=== PATIENT | female | born 1985 | race Caucasian/White ===

== ENCOUNTER 2020-11-23 21:31 | Inpatient (IN) ==
[~2020-11-23 21:31] MED LIST: *HR* Dextrose 50 % in Water (Syg) 50 ML SYRINGE IVP ONE; *HR* Dextrose 50 % in Water (Syg) 50 ML SYRINGE IVP PRN; 0.9 % Sodium Chloride 250 ML IVC ONE; 0.9 % Sodium Chloride 500 ML ONE; CeFAZolin 2,000 MG/120 ML BAG IVPB ONE; D10% in Water 500 ML ONE; D5% in Lactated Ringers 1,000 ML IVC SCH; Famotidine 20 MG/2 ML VIAL IVP ONE; Metoclopramide 10 MG/2 ML VIAL IVP ONE; NIFEdipine Immed Rel 10 MG CAPSULE PO STA; NIFEdipine XL (24 HR) 30 MG TAB.ER.24 PO SCH
[2020-11-23] MEDS ORDERED: 0.9 % Sodium Chloride 500 ML ONE (22:27)
[2020-11-23] MEDS ORDERED: NIFEdipine XL (24 HR) 30 MG TAB.ER.24 PO SCH (22:30)
[2020-11-23 22:43] LABS: Basophils % 0.3 %; Eosinophils # 0.2 K/mcL (0.0-0.6); Eosinophils % 2.1 %; Hematocrit 35.3 % (35.3-44.9); Hemoglobin 11.5 g/dL (11.5-15.4); Immature Granulocytes % 0.4 % (0-4); Lymphocytes # 1.7 K/mcL (0.6-4.6); Lymphocytes % 23.7 %; Mean Corpuscular HGB Conc 32.6 g/dL (31.6-35.5); Mean Corpuscular Hemoglobin 28.2 pg (28.0-33.3); Mean Corpuscular Volume 86.5 fL (83.0-100.0); Monocytes # 0.8 K/mcL (0.0-1.3); Monocytes % 10.3 %; Neutrophils # 4.6 K/mcL (1.6-8.9); Platelet Count 271 K/mcL (140-400); Red Blood Count 4.08 M/mcL (3.82-4.97); Red Cell Distribution Width 13.2 % (11.5-14.5); Segmented Neutrophils % 63.2 %; White Blood Count 7.3 K/mcL (4.3-11.1)
[2020-11-23 23:02] LABS: Alanine Aminotransferase 22 Units/L (7-52); Aspartate Amino Transferase 38 Units/L (13-39); BUN/Creatinine Ratio 16 (6-26); Blood Urea Nitrogen 13 mg/dL (6-20); Lactate Dehydrogenase 202 Units/L (140-271); Uric Acid 5.1 mg/dL (2.3-7.6); eGFR For African Americans > 60 (> 60); eGFR For Non-African Americans > 60 (> 60)
[2020-11-24] MEDS ORDERED: Ondansetron 4 MG/2 ML VIAL ONE ×3 (00:43→07:12)
[2020-11-24 01:18] LABS: Bilirubin,Urine Negative (Negative); Blood,Urine Trace-intact (Negative); Clarity,Urine Clear (Clear); Color,Urine Yellow (Yellow); Glucose,Urine (UA) Normal (Normal); Ketones,Urine Trace mg/dL (Negative); Leukocyte Esterase,Urine Negative (Negative); Nitrite,Urine Negative (Negative); PH,Urine 5.5 pH Units (5.0-8.0); Protein,Urine 100 mg/dL (Neg-Trace); Specific Gravity,Urine 1.015 (1.010-1.025); Urobilinogen,Urine Normal (Normal)
[2020-11-24 01:23] LABS: Amphetamine Screen,Urine Negative ng/mL (Cutoff=1000); Barbiturate Screen,Urine Negative ng/mL (Cutoff=200); Benzodiazepines Screen,Urine Negative ng/mL (Cutoff=200); Cannabinoid Screen,Urine Negative ng/mL (Cutoff = 50); Cocaine Screen,Urine Negative ng/mL (Cutoff= 300); Creatinine,Urine 146 mg/dL; Opiate Screen,Urine Negative ng/mL (Cutoff=300); Phencyclidine Screen,Urine Negative ng/mL (Cutoff=25); Protein/Creatinine Ratio,Urine 0.94 mg/mg (0.00-0.20)
[2020-11-24 01:30] LABS: Bacteria,Urine Few per hpf (None-Few); RBC,Urine 0-3 per hpf (0-3); Squamous Epithelial Cell,Urine Many per hpf (None-Few); WBC,Urine 0-3 per hpf (0-3)
[2020-11-24 01:57] LABS: Influenza A PCR Negative (Negative); Influenza B PCR Negative (Negative); Resp. Syncytial Virus PCR Negative (Negative)
[2020-11-24 01:58] LABS: SARS-CoV-2 by PCR (In House) Negative (Negative)
[2020-11-24] MEDS ORDERED: Ondansetron 4 MG/2 ML VIAL IVP ONE ×2 (02:02→03:28)
[2020-11-24] MEDS ORDERED: 0.9 % Sodium Chloride 1,000 ML ONE (03:13)
[2020-11-24] MEDS ORDERED: 0.9 % Sodium Chloride 500 ML ONE (03:13)
[2020-11-24] MEDS ORDERED: *HR* FentaNYL (PF) 100 MCG/2 ML VIAL ONE (07:12)
[2020-11-24] MEDS ORDERED: *HR* Morphine Sulfate/PF 10 MG/10 ML AMPUL ONE (07:12)
[2020-11-24] MEDS ORDERED: EPHEDrine 50 MG/ML VIAL ONE (07:12)
[2020-11-24] MEDS ORDERED: *HR* Phenylephrine 10 MG/ML VIAL ONE (07:12)
[2020-11-24] MEDS ORDERED: *HR* OxyCODONE Immed Rel 5 MG TABLET PO PRN (07:16)
[2020-11-24] MEDS ORDERED: Ondansetron 4 MG/2 ML VIAL IVP PRN ×2 (07:16→11:24)
[2020-11-24] MEDS ORDERED: *HR* HYDROmorphone PF 0.5 MG/0.5 ML SYRINGE IVP PRN (07:16)
[2020-11-24] MEDS ORDERED: Ibuprofen 400 MG TABLET PO PRN (07:16)
[2020-11-24] MEDS ORDERED: Acetaminophen IV 1,000 MG/100 ML BAG IVPB ONE ×2 (07:17→08:56)
[2020-11-24] MEDS ORDERED: Ketorolac 30 MG/ML VIAL ONE (07:20)
[2020-11-24] MEDS ORDERED: Famotidine 20 MG/2 ML VIAL IVP ONE (07:20)
[2020-11-24] MEDS ORDERED: Metoclopramide 10 MG/2 ML VIAL IVP ONE (07:20)
[2020-11-24] MEDS ORDERED: ceFAZolin 2,000 MG in Water for inj. (sterile) 20 ML IVP ONE (07:26)
[2020-11-24] MEDS ORDERED: Ringers Solution, Lactated 1,000 ML ONE (08:12)
[2020-11-24] MEDS ORDERED: Rho Immune Globulin 1,500 UNIT SYRINGE IM ONE (11:24)
[2020-11-24] MEDS ORDERED: Simethicone 80 MG TAB.CHEW PO PRN (11:24)
[2020-11-24] MEDS ORDERED: Metoclopramide 10 MG/2 ML VIAL IVP PRN (11:24)
[2020-11-24] MEDS ORDERED: Oxytocin 20 units/ LR 1000 mL 20 UNIT/1,000 ML BAG IVC SCH (11:24)
[2020-11-24] MEDS ORDERED: NON-FORMULARY MEDICATION 1 EACH EACH (Prenat 115/Iron Fum/Folic/Dss [Prenatal 19 Tablet] 1 PO SCH (11:24)
[2020-11-24] MEDS ORDERED: 0.9 % Sodium Chloride 1,000 ML IVC SCH (11:24)
[2020-11-24] MEDS: Prenatal Vit/FA 1 EACH TABLET PO SCH (11:52)
[2020-11-24] MEDS: Acetaminophen 325 MG TABLET PO SCH ×2 (11:53→19:20)
[2020-11-24] MEDS: Ibuprofen 600 MG TABLET PO SCH ×2 (11:53→19:20)
[2020-11-24] MEDS: *HR* Enoxaparin 40 MG/0.4 ML SYRINGE SQ SCH (22:06)
[2020-11-24] MEDS ORDERED: *HR* Dextrose 50 % in Water (Syg) 50 ML SYRINGE IVP PRN (22:46)
[2020-11-25 05:18] LABS: Hemoglobin 10.3 g/dL (11.5-15.4); Mean Platelet Volume 10.6 fL (9.4-12.4)
[2020-11-25 05:20] LABS: Basophils % 0.3 %; Eosinophils % 0.3 %; Hematocrit 31.1 % (35.3-44.9); Immature Granulocytes % 0.4 % (0-4); Immature Platelets 4.1 % (1.1-6.1); Lymphocytes # 1.6 K/mcL (0.6-4.6); Lymphocytes % 21.4 %; Mean Corpuscular HGB Conc 33.1 g/dL (31.6-35.5); Mean Corpuscular Volume 87.6 fL (83.0-100.0); Monocytes # 0.7 K/mcL (0.0-1.3); Monocytes % 9.7 %; Neutrophils # 5.1 K/mcL (1.6-8.9); Platelet Count 186 K/mcL (140-400); Red Blood Count 3.55 M/mcL (3.82-4.97); Red Cell Distribution Width 13.2 % (11.5-14.5); Segmented Neutrophils % 67.9 %; White Blood Count 7.5 K/mcL (4.3-11.1)
[2020-11-25] MEDS: Ibuprofen 600 MG TABLET PO SCH ×2 (08:36→20:00)
[2020-11-25] MEDS: *HR* Enoxaparin 40 MG/0.4 ML SYRINGE SQ SCH ×2 (08:36→19:55)
[2020-11-25] MEDS: Prenatal Vit/FA 1 EACH TABLET PO SCH (08:36)
[2020-11-25] MEDS: Acetaminophen 325 MG TABLET PO SCH ×2 (08:36→20:00)
[2020-11-26] MEDS: Acetaminophen 325 MG TABLET PO SCH ×2 (03:15→09:26)
[2020-11-26] MEDS: Ibuprofen 600 MG TABLET PO SCH ×2 (03:15→09:26)
[2020-11-26 08:02] VITALS: BP 125/64; PULSE 79; TEMP 98; O2SAT 94
[2020-11-26] MEDS: *HR* Enoxaparin 40 MG/0.4 ML SYRINGE SQ SCH (09:12)
[2020-11-26] MEDS: Prenatal Vit/FA 1 EACH TABLET PO SCH (09:12)
== END 2020-11-26 14:00 | disposition home or self-care (01) | DRG 786 ==
LOC: 1NENULAB → 1NENUOBS 11-24 11:43
PROVIDERS: ADMIT Student in an Organized Health Care Education/Training Program; ATTEND Student in an Organized Health Care Education/Training Program